=== PATIENT | male | born 1980 | race Caucasian/White ===

== ENCOUNTER 2023-03-19 21:15 | Emergency (ER) | payer MEDICAID ==
[~2023-03-19] VITALS: Ht 177.8 cm; Wt 76.7 kg
[2023-03-19 22:46] VITALS: BP 127/70; PULSE 72; RESP 18; TEMP 98.4; O2SAT 97
[2023-03-20] MEDS ORDERED: IBUPROFEN 600MG TABLET PO ONE (00:45)
[2023-03-20] MEDS ORDERED: TETANUS, DIPHTHERIA, PERTUSSIS VAC/PF 0.5ML (>10YR OLD) IM ONE (00:45)
[2023-03-20] MEDS ORDERED: ACETAMINOPHEN 325MG TABLET PO ONE (00:45)
== END 2023-03-20 04:33 | disposition home or self-care (01) ==
LOC: ER 21:15
DX: S69.91XA Unspecified injury of right wrist, hand and finger(s), initial encounter (principal); G89.11 Acute pain due to trauma; I10 Essential (primary) hypertension; Y04.0XXA Assault by unarmed brawl or fight, initial encounter; Y93.89 Activity, other specified; Y92.89 Other specified places as the place of occurrence of the external cause; Y99.8 Other external cause status
CPT/HCPCS: 29125; 73110; 73130; 99284